=== PATIENT | male | born 1985 | race Caucasian/White ===

== ENCOUNTER 2018-12-05 02:32 | Inpatient (IN) ==
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
[2018-12-05] MEDS ORDERED: OLANZapine 10 MG TAB.RAPDIS PO STA (04:05)
[2018-12-05] MEDS ORDERED: Mag Hydrox/Al Hydrox/Simeth 30 ML UDC PO PRN (04:55)
[2018-12-05] MEDS ORDERED: *HR* LORazepam 1 MG TABLET PO PRN (04:55)
[2018-12-05] MEDS ORDERED: Haloperidol Lactate 5 MG/ML VIAL IM PRN (04:55)
[2018-12-05] MEDS ORDERED: MOM Conc 10 ML UD.LIQ PO PRN (04:55)
[2018-12-05] MEDS ORDERED: *HR* LORazepam 2 MG/ML VIAL IM PRN ×2 (04:55→16:05)
[2018-12-05] MEDS ORDERED: OLANZapine 10 MG TAB.RAPDIS PO ONE (08:45)
[2018-12-05] MEDS: hydrOXYzine pamoate 25 MG CAPSULE PO PRN (08:51)
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
[2018-12-05] MEDS ORDERED: *HR* LORazepam 1 MG TABLET PO ONE (09:11)
[2018-12-05] MEDS ORDERED: chlorproMAZINE 25 MG TABLET PO ONE (09:11)
[2018-12-05] MEDS: Nicotine 2 MG GUM BC PRN ×2 (09:20→22:10)
[2018-12-05] MEDS: *HR* LORazepam 1 MG TABLET PO PRN ×2 (15:56→21:20)
[2018-12-05] MEDS: chlorproMAZINE 25 MG TABLET PO PRN ×2 (15:57→21:21)
[2018-12-05] MEDS ORDERED: ChlorproMAZINE 25 MG/ML AMPUL IM PRN (16:06)
[2018-12-05] MEDS ORDERED: OLANZapine 10 MG TAB.RAPDIS PO SCH (21:00)
[2018-12-05] MEDS: Divalproex (24 HR) 500 MG TABLET PO SCH (21:25)
[2018-12-06] MEDS: Ibuprofen 400 MG TABLET PO PRN ×2 (04:04→19:51)
[2018-12-06] MEDS: hydrOXYzine pamoate 25 MG CAPSULE PO PRN ×2 (06:29→11:31)
[2018-12-06] MEDS: chlorproMAZINE 25 MG TABLET PO PRN ×2 (07:02→11:30)
[2018-12-06] MEDS: *HR* LORazepam 1 MG TABLET PO PRN (07:42)
[2018-12-06] MEDS: Divalproex (24 HR) 500 MG TABLET PO SCH (08:31)
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
[2018-12-06] MEDS: carBAMazepine 200 MG TABLET PO SCH ×2 (10:01→20:51)
[2018-12-06] MEDS ORDERED: *HR* LORazepam 1 MG TABLET PO PRN (11:03)
[2018-12-06] MEDS ORDERED: *HR* LORazepam 2 MG/ML VIAL IM PRN (11:03)
[2018-12-06] MEDS ORDERED: ChlorproMAZINE 25 MG/ML AMPUL IM PRN (11:03)
[2018-12-06] MEDS: Nicotine 2 MG GUM BC PRN ×3 (11:22→17:11)
[2018-12-06] MEDS: OLANZapine 10 MG TAB.RAPDIS PO SCH ×2 (11:31→20:51)
[2018-12-06 20:21] VITALS: BP 118/70
[2018-12-07] MEDS: Nicotine 2 MG GUM BC PRN ×2 (02:23→09:27)
[2018-12-07] MEDS: chlorproMAZINE 25 MG TABLET PO PRN (06:20)
[2018-12-07] MEDS: carBAMazepine 200 MG TABLET PO SCH (08:36)
[2018-12-07] MEDS: OLANZapine 10 MG TAB.RAPDIS PO SCH (08:36)
[2018-12-07] MEDS: hydrOXYzine pamoate 25 MG CAPSULE PO PRN (08:39)
--- NOTE | 2018-12-07 10:04 | Discharge Summary ---
Date of Encounter: 12/07/18 Time of Encounter: 09:35 Diagnosis - Discharge Diagnosis (1) Psychotic disorder Status: Acute Comments: Rule out substance-induced versus primary Qualifiers: Psychosis type: unspecified psychosis type Qualified Code(s): F29 - Unspecified psychosis not due to a substance or known physiological condition Medications - Discharge Medications Prescriptions: hydrOXYzine pamoate [HydrOXYzine Pamoate] 25 mg PO TID PRN #45 capsule PRN Reason: Anxiety carBAMazepine [Tegretol] 200 mg PO BID #30 tablet OLANZapine [Zyprexa Zydis] 10 mg PO BID #30 tab.rapdis OLANZapine [Zyprexa Zydis] 10 mg PO BID #30 tab.rapdis 12/07/18 [Rx] carBAMazepine [Tegretol] 200 mg PO BID #30 tablet 12/07/18 [Rx] hydrOXYzine pamoate [HydrOXYzine Pamoate] 25 mg PO TID PRN #45 capsule 12/07/18 [Rx] Allergy/AdvReac Type Severity Reaction Status Date / Time citalopram [From Celexa] Allergy Hives Verified 08/18/18 20:32 risperidone [From Risperdal] Allergy Hives Verified 08/18/18 20:32 Provider Date of admission: 12/05/18 04:51 Primary care physician: PCP NONE Discharging clinician: Marley Rodriguez Psychiatry Exam - Constitutional Vitals: Temp Pulse Resp BP Pulse Ox 98.1 F 64 20 118/70 98 12/06/18 20:00 12/06/18 20:00 12/06/18 20:00 12/06/18 20:00 12/06/18 20:00 General appearance: age & developmentally appropriate, well-groomed, well- nourished - Musculoskeletal Gait: normal Station: relaxed Strength & Tone: normal for patient - Psychiatric Patient Orientation: Yes Person, Yes Time, Yes Place, Yes Circumstance Level of alertness: Alert Behavior: calm, cooperative Psychomotor activity: Normal Eye Contact: Maintains Eye Contact Mood Description: Euthymic/stable Patient description of mood: Fine Affect description: congruent with mood, full range Speech Volume: Normal Speech pattern: normal rate, normal rhythm, normal tone, fluent, spontaneous Language & Vocabulary: consistent with education Thought Process: Linear, Goal Oriented Thought Content: No Suicidal ideation, No Homicidal ideation, No Overt delusions Perceptual Disturbances: No Auditory hallucinations, No Visual hallucinations Attention Span Ability: Capable of Focused Attention Memory Description: Grossly Intact Patient Reliability: Reliable Historian Fund of knowledge: Yes abstraction ability, Yes aware of current events Intelligence Estimate: Average Judgment: Fair Insight: Full Hospital Course Hospital course: Mr. Hutson is a 33 year old male who was admitted for psychosis. He was initially very agitated and confused. He appears to have been under the i nfluence of bath salts, krattom, or some synthetic cannabis as nothing showed up on his toxicology screen but this is a very acute presentation. He required multiple doses of when necessary Thorazine, Haldol, Ativan, Benadryl, and Zyprexa with little improvement in his intoxication. On the his symptoms had resolved. He was able to speak with me logically. He was seeking Xanax, and able to clearly talk with me about how he had been on this for many years until he had tested positive for another drug and they took him off it. He was able to tell me clearly about his family and his uncle and going back to live with his uncle who has Alzheimer's disease. He was not responding to internal stimuli or appearing psychotic. He denied auditory or visual hallucinations. He denied suicidal or homicidal thoughts, ideations, or plans. Patient was educated of diagnosis and the risk-benefit side effects of this alternative treatment options and was monitored for responsiveness and side effects. Mood anxiety sleep and appetite interest improved as did future orientation. Self- harm thoughts subsided, thinking cleared, psychosis resolved, and mood stabilized. The patient was educated primarily by verbal means about their diagnosis and manifestations in their life. The option for treatment including group and individual therapy programming was offered to the patient in addition to the use of medications with all their potential risks, benefits, and side effects as well as the risks of not taking medication and non-adhereance were discussed with the patient at length. The patient was given the opportunity to ask questions and was noted to participate in the treatment in the planning process. The patient felt ready and eager to be discharged from the inpatient psychiatric unit to continue on with treatment as an outpatient. The patient agreed that is they were safe for this disposition. The patient was considered to be able to participate in informed consent and decision making with respect to medical, legal, and financial issues of the time of discharge. At the time of discharge the patient adamantly denied any concerns for lethality including suicidal or homicidal thoughts ideations or plans and was future oriented toward ongoing mental health care, medical follow-up and sobriety. Time spent discussing smoking cessation with patient: 3 to 10 minutes Does patient wish to continue nicotine replacement upon disc: No - Time Spent with Patient Total time spent providing and/or coordinating discharge services: 25 Less than 30 minutes Specific discharge activities: Interval history reviewed. Available labs reviewed . Psychotherapy provided. Patient had an opportunity to ask questions and address concerns. Patient was in agreement with the treatment plan. The risks benefits and side effects of medications were discussed with the patient, including alternatives and treatment. The patient was educated on the abstaining from any alcohol or illicit substances, following up with all scheduled appointments, and taking all medications as prescribed. The patient was educated on 90 meetings in 90 days and to find a sponsor. Assessment and Plan - Patient/Caregiver Discharge Instructions Activity: resume usual activities as tolerated Diet: regular diet Additional Instructions: Continue current medications. Follow up with outpatient mental health. Encourage continued therapy in a group or individual setting. The patient was discharged to home. - Follow up Plan Follow up with: NONE,PCP [Primary Care Provider] - Functional capacity at discharge: independent ambulation Overall status at discharge: Stable Disposition: Home, Self-Care Quality - Multiple Antipsychotics Patient discharged on 2 or more antipsychotic medications: No Procedures - Procedures Procedures: Medication Management, Crisis Stabilization, Supportive Therapy, Psychoeducational Therapy
== END 2018-12-07 11:30 | disposition home or self-care (01) | DRG 750 ==
LOC: EMEROOARM 02:32 → 1ANU 04:50
PROVIDERS: ADMIT Psychiatry & Neurology Psychiatry; ATTEND Psychiatry & Neurology Psychiatry

== ENCOUNTER 2021-05-04 14:39 | Inpatient (IN) ==
[2021-05-04] MEDS ORDERED: Ziprasidone 10 MG in Water for inj. (sterile) 0.5 ML IM ONE (14:52)
[2021-05-04] MEDS ORDERED: *HR* LORazepam 2 MG/ML VIAL IM ONE (14:52)
[2021-05-04 15:22] LABS: Basophils # 0.1 K/mcL (0.0-0.2); Basophils % 0.6 %; Eosinophils # 0.1 K/mcL (0.0-0.6); Eosinophils % 1.2 %; Hematocrit 44.8 % (37.5-50.1); Hemoglobin 15.3 g/dL (12.9-16.9); Immature Granulocytes % 0.4 % (0-4); Lymphocytes # 2.7 K/mcL (0.6-4.6); Lymphocytes % 26.2 %; Mean Corpuscular HGB Conc 34.2 g/dL (31.6-35.5); Mean Corpuscular Hemoglobin 31.1 pg (28.0-33.3); Mean Corpuscular Volume 91.1 fL (83.0-100.0); Mean Platelet Volume 10.1 fL (9.4-12.4); Monocytes # 0.8 K/mcL (0.0-1.3); Monocytes % 7.6 %; Neutrophils # 6.6 K/mcL (1.6-8.9); Platelet Count 244 K/mcL (140-400); Red Blood Count 4.92 M/mcL (4.19-5.50); White Blood Count 10.2 K/mcL (4.3-11.1)
[2021-05-04 15:34] LABS: Bilirubin,Urine Negative (Negative); Blood,Urine Negative (Negative); Clarity,Urine Clear (Clear); Color,Urine Light-Yellow (Yellow); Glucose,Urine (UA) Normal (Normal); Ketones,Urine Negative (Negative); Leukocyte Esterase,Urine Negative (Negative); Nitrite,Urine Negative (Negative); PH,Urine 6.5 pH Units (5.0-8.0); Protein,Urine Negative (Neg-Trace); Specific Gravity,Urine 1.008 (1.010-1.025); Urobilinogen,Urine Normal (Normal)
[2021-05-04 16:06] LABS: Acetaminophen < 10 mcg/mL (10-20); BUN/Creatinine Ratio 10 (6-26); Blood Urea Nitrogen 10 mg/dL (6-20); Carbon Dioxide 27 mEq/L (23-29); Chloride 102 mEq/L (98-107); Chol/HDL Ratio 2.3 (0-4.9); Cholesterol 148 mg/dL (< 200); Ethanol < 10 mg/dL (Less than 10); Glucose 113 mg/dL (70-105); HDL Cholesterol 63 mg/dL (40-59); LDL Cholesterol,Calculated 74 mg/dL (< 100); Osmolality,Calculated 284 (280-300); Potassium 3.6 mEq/L (3.5-5.1); Salicylate < 2.5 mg/dL (15.0-30.0); Sodium 137 mEq/L (136-145); Triglycerides 55 mg/dL (< 150); eGFR For African Americans > 60 (> 60); eGFR For Non-African Americans > 60 (> 60)
[2021-05-04 16:06] LABS: Amphetamine Screen,Urine Negative ng/mL (Cutoff=1000); Barbiturate Screen,Urine Negative ng/mL (Cutoff=200); Benzodiazepines Screen,Urine Negative ng/mL (Cutoff=200); Cannabinoid Screen,Urine Negative ng/mL (Cutoff = 50); Cocaine Screen,Urine Negative ng/mL (Cutoff= 300); Opiate Screen,Urine Negative ng/mL (Cutoff=300); Phencyclidine Screen,Urine Negative ng/mL (Cutoff=25)
[2021-05-04 16:12] LABS: Estimated Average Glucose 111 mg/dl; Hemoglobin A1C 5.5 %
[2021-05-04 18:54] LABS: Influenza A PCR Negative (Negative); Influenza B PCR Negative (Negative); Resp. Syncytial Virus PCR Negative (Negative)
[2021-05-04 18:58] LABS: SARS-CoV-2 by PCR (In House) Negative (Negative)
[2021-05-04] MEDS ORDERED: MOM Conc 10 ML UD.LIQ PO PRN (22:14)
[2021-05-04] MEDS ORDERED: *HR* LORazepam 2 MG/ML VIAL IM PRN (22:14)
[2021-05-04] MEDS ORDERED: Haloperidol Lactate 5 MG/ML VIAL IM PRN (22:14)
[2021-05-04] MEDS ORDERED: haloperidoL 5 MG TABLET PO PRN (22:14)
[2021-05-04] MEDS ORDERED: Mag Hydrox/Al Hydrox/Simeth 30 ML UDC PO PRN (22:14)
[2021-05-04] MEDS ORDERED: *HR* LORazepam 1 MG TABLET PO PRN (22:14)
[2021-05-04] MEDS ORDERED: Ondansetron ODT 4 MG TAB.RAPDIS SL PRN (22:22)
[2021-05-04] MEDS ORDERED: OLANZapine 10 MG TAB.RAPDIS PO SCH (22:30)
[2021-05-04] MEDS: traZODone 50 MG TABLET PO PRN (22:32)
[2021-05-04] MEDS: Acetaminophen 325 MG TABLET PO PRN (22:32)
[2021-05-04] MEDS: hydrOXYzine pamoate 25 MG CAPSULE PO PRN (22:36)
[2021-05-05] MEDS: Ibuprofen 400 MG TABLET PO PRN ×2 (10:26→19:07)
[2021-05-05] MEDS: hydrOXYzine pamoate 25 MG CAPSULE PO PRN ×2 (10:27→15:16)
[2021-05-05] MEDS: Nicotine 2 MG GUM BC PRN ×2 (10:42→19:07)
[2021-05-05] MEDS: Multivit/Ca/Min/Fe/FA 1 TAB TABLET PO SCH (12:31)
[2021-05-05] MEDS: Thiamine (B-1) 100 MG TABLET PO SCH (12:31)
[2021-05-05] MEDS: OLANZapine 10 MG TAB.RAPDIS PO SCH ×2 (12:31→20:14)
[2021-05-05] MEDS: Acetaminophen 325 MG TABLET PO PRN (15:23)
[2021-05-05] MEDS: traZODone 50 MG TABLET PO PRN (20:14)
[2021-05-06] MEDS: Nicotine 2 MG GUM BC PRN ×3 (02:24→17:04)
[2021-05-06] MEDS: hydrOXYzine pamoate 25 MG CAPSULE PO PRN ×3 (05:55→20:27)
[2021-05-06] MEDS: Acetaminophen 325 MG TABLET PO PRN (06:28)
[2021-05-06] MEDS: Thiamine (B-1) 100 MG TABLET PO SCH (08:39)
[2021-05-06] MEDS: OLANZapine 10 MG TAB.RAPDIS PO SCH ×2 (08:41→20:27)
[2021-05-06] MEDS ORDERED: Haloperidol Lactate 5 MG/ML VIAL IM PRN (08:52)
[2021-05-06] MEDS ORDERED: *HR* LORazepam 2 MG/ML VIAL IM PRN (08:57)
[2021-05-06] MEDS: Multivit/Ca/Min/Fe/FA 1 TAB TABLET PO SCH (09:01)
[2021-05-06] MEDS: Ibuprofen 400 MG TABLET PO PRN (14:26)
[2021-05-06] MEDS: traZODone 50 MG TABLET PO PRN (20:27)
[2021-05-07] MEDS: Nicotine 2 MG GUM BC PRN ×2 (06:00→09:49)
[2021-05-07] MEDS: Multivit/Ca/Min/Fe/FA 1 TAB TABLET PO SCH (08:15)
[2021-05-07] MEDS: Thiamine (B-1) 100 MG TABLET PO SCH (08:15)
[2021-05-07] MEDS: OLANZapine 10 MG TAB.RAPDIS PO SCH (08:17)
[2021-05-07] MEDS: Ibuprofen 400 MG TABLET PO PRN (09:45)
[2021-05-07 10:15] VITALS: BP 118/77; PULSE 95; TEMP 98.2; O2SAT 96
[2021-05-07] MEDS: hydrOXYzine pamoate 25 MG CAPSULE PO PRN (11:07)
[2021-05-07] MEDS ORDERED: *HR* Buprenorphine HCl 8 MG TAB.SUBL SL SCH (11:45)
[2021-05-07] MEDS ORDERED: carBAMazepine 200 MG TABLET PO SCH (21:00)
[2021-05-07] MEDS ORDERED: Divalproex (12 HR) 500 MG TABLET PO SCH (21:00)
== END 2021-05-07 13:25 | DRG 751 ==
LOC: EMEROOARM 14:39 → 1ANU 21:56
PROVIDERS: ADMIT Psychiatry & Neurology Psychiatry; ATTEND Psychiatry & Neurology Psychiatry